=== PATIENT | female | born 1940 | race Two or more races ===

== ENCOUNTER 2020-08-27 18:03 | Emergency (ER) | payer OTHER ==
[~2020-08-27] VITALS: Ht 167.6 cm; Wt 64.9 kg
[2020-08-27] MEDS ORDERED: FORTAMET500 MG (18:29)
[2020-08-27] MEDS ORDERED: LIPITOR (18:30)
[2020-08-27] MEDS ORDERED: GLIPIZIDE ER10 MG (18:30)
[2020-08-27] MEDS ORDERED: METROPOLOL (18:31)
[2020-08-27] MEDS ORDERED: NORVASC (18:31)
[2020-08-27] MEDS ORDERED: ASPIRINA (18:32)
== END 2020-08-27 20:20 | disposition home or self-care (01) ==
LOC: ER 18:03
DX: S00.83XA Contusion of other part of head, initial encounter (principal); W18.39XA Other fall on same level, initial encounter; Y93.89 Activity, other specified; Y92.098 Other place in other non-institutional residence as the place of occurrence of the external cause; Y99.8 Other external cause status